=== PATIENT | male | born 2000 | race Caucasian/White ===

== ENCOUNTER 2022-04-10 07:08 | Emergency (ER) | payer OTHER, MEDICAID ==
[~2022-04-10] VITALS: Ht 188 cm; Wt 77.1 kg
[2022-04-10] MEDS ORDERED: HYDROcodone-ACET 5/325MG TAB PO ONE (08:45)
[2022-04-10] MEDS ORDERED: KETOROLAC TROMETH 60MG/2ML VIAL IM ONE (08:45)
[2022-04-10 09:19] VITALS: BP 115/70
[2022-04-10] MEDS ORDERED: BACITRACIN TOP OINT 1 UD PKG TOP ONE ×2 (09:31→10:00)
[2022-04-10] MEDS ORDERED: MAX35OO TOP (09:52)
[2022-04-10] MEDS ORDERED: IBUP800T26 PO (09:52)
[2022-04-10] MEDS ORDERED: HYDR-4902 PO (09:52)
== END 2022-04-10 10:00 | disposition home or self-care (01) ==
LOC: ER 07:08
DX: S51.011A Laceration without foreign body of right elbow, initial encounter (principal); S50.01XA Contusion of right elbow, initial encounter; S80.01XA Contusion of right knee, initial encounter; V89.2XXA Person injured in unspecified motor-vehicle accident, traffic, initial encounter; Y93.89 Activity, other specified; Y92.89 Other specified places as the place of occurrence of the external cause; Y99.8 Other external cause status
CPT/HCPCS: 12002; 73070; 73562; 96372; 99284; J1885